=== PATIENT | male | born 2000 | race Asian ===

== ENCOUNTER 2021-04-29 15:08 | Emergency (ER) | payer OTHER ==
[~2021-04-29] VITALS: Ht 167.6 cm; Wt 68.0 kg
[2021-04-29] MEDS ORDERED: KETOROLAC TROMETHAMINE INJ 30 MG/ML VIAL IM ONE (16:00)
[2021-04-29] MEDS ORDERED: DEXAMETHASONE 1 MG TABLET PO ONE (16:00)
[2021-04-29] MEDS ORDERED: KETOROLAC TROMETHAMINE INJ 30 MG/ML VIAL ONE (16:01)
[2021-04-29] MEDS ORDERED: DEXAMETHASONE 4 MG TABLET ONE (16:01)
[2021-04-29 17:21] VITALS: BP 110/60
--- NOTE | 2021-04-29 17:22 | NUR ---
patient condition stable d/c home with instructions after care reviewed understood left er via self ambulatory with steady gait.
== END 2021-04-29 17:30 | disposition home or self-care (01) ==
LOC: ER 15:13
DX: J02.8 Acute pharyngitis due to other specified organisms (principal); R05 Cough; R50.9 Fever, unspecified; Z20.822 Contact with and (suspected) exposure to COVID-19
CPT/HCPCS: 70360; 71045; 87426; 96372; 99284; C9803; J1885; J8540